=== PATIENT | male | born 1940 | race Caucasian/White ===

== ENCOUNTER → 2023-07-25 11:15 | Outpatient (REF) | payer MEDICARE, BC, SELFPAY ==
[2023-07-25 12:33] LABS: % Basophils 1.6 % (0-2); % Eosinophils 4.9 % (0-6); % Immature Granulocytes 0.2 % (0-0.5); % Monocytes 7.7 % (1.7-9.3); % Neutrophils 66.6 % (42.2-75.2); Absolute Basophils 0.1 10^3/uL (0-0.2); Absolute Eosinophils 0.3 10^3/uL (0-0.7); Absolute Lymphocytes 1.2 10^3/uL (1.2-3.4); Absolute Monocytes 0.5 10^3/uL (0.1-0.6); Absolute Neutrophils 4.2 10^3/uL (1.4-6.5); Hematocrit 33.8 % (39.0-52.0); Hemoglobin 11.5 g/dL (13.0-18.0); Mean Corpuscular Hgb 30.8 pg (27.0-31.0); Mean Corpuscular Volume 90.6 fL (80.0-94.0); Nucleated Red Blood Cells % 0 % (-); Platelet Count 231 10^3/uL (130-400); Red Blood Cell Count 3.73 10^6/uL (4.70-6.10); Red Cell Dist. Width 14.1 % (11.5-14.5); White Blood Cell Count 6.3 10^3/uL (4.8-10.8)
[2023-07-25 12:58] LABS: ALT (SGPT) 23 U/L (0-50); AST (SGOT) 34 U/L (17-59); Albumin 4.2 g/dl (3.5-5.0); Alkaline Phosphatase 61 U/L (38-126); Blood Urea Nitrogen 23 mg/dl (9-20); Calcium 9.6 mg/dl (8.4-10.2); Carbon Dioxide 27 mmol/L (22-30); Chloride 107 mmol/L (98-107); Glucose 91 mg/dl (70-99); Potassium 4.4 mmol/L (3.5-5.1); Sodium 137 mmol/L (135-145); Total Bilirubin 0.7 mg/dl (0.2-1.3); Total Protein 6.6 g/dl (6.3-8.2); eGFR > 60.00
[2023-07-25 13:14] LABS: Free T4 2.08 ng/dl (0.78-2.19)
[2023-07-25 13:28] LABS: TSH 0.89 uIU/ml (0.47-4.68)
== END ==
LOC: REG 11:15
PROVIDERS: ATTENDING PHYSICIAN Family Medicine
DX: E03.9 Hypothyroidism, unspecified (principal); Z79.1 Long term (current) use of non-steroidal anti-inflammatories (NSAID)
CPT/HCPCS: 36415; 80053; 84439; 84443; 85025

== ENCOUNTER → 2024-06-04 08:11 | Outpatient (REF) | payer MEDICARE, BC, SELFPAY ==
[2024-06-04 10:08] LABS: % Eosinophils 5.5 % (0-6); % Immature Granulocytes 0.3 % (0-0.5); % Monocytes 7.9 % (1.7-9.3); % Neutrophils 68.3 % (42.2-75.2); Absolute Basophils 0.1 10^3/uL (0-0.2); Absolute Eosinophils 0.3 10^3/uL (0-0.7); Absolute Monocytes 0.5 10^3/uL (0.1-0.6); Absolute Neutrophils 4.1 10^3/uL (1.4-6.5); Hematocrit 36.7 % (39.0-52.0); Hemoglobin 11.9 g/dL (13.0-18.0); Mean Corp Hgb Conc. 32.4 g/dL (33.0-37.0); Mean Corpuscular Hgb 30.2 pg (27.0-31.0); Mean Corpuscular Volume 93.1 fL (80.0-94.0); Mean Platelet Volume 11.6 fL (7.4-10.4); Nucleated Red Blood Cells % 0 % (-); Platelet Count 234 10^3/uL (130-400); Red Blood Cell Count 3.94 10^6/uL (4.70-6.10); Red Cell Dist. Width 13.9 % (11.5-14.5)
[2024-06-04 11:28] LABS: ALT (SGPT) 27 U/L (0-50); AST (SGOT) 30 U/L (17-59); Albumin 4.7 g/dl (3.5-5.0); Alkaline Phosphatase 51 U/L (38-126); Blood Urea Nitrogen 47 mg/dl (9-20); Calcium 9.6 mg/dl (8.4-10.2); Carbon Dioxide 27 mmol/L (22-30); Chloride 105 mmol/L (98-107); Glucose 91 mg/dl (70-99); HDL Cholesterol 52 mg/dl; LDL Cholesterol, Calculated 148 mg/dl; Potassium 4.5 mmol/L (3.5-5.1); Sodium 142 mmol/L (135-145); Total Bilirubin 0.8 mg/dl (0.2-1.3); Total Cholesterol 219 mg/dl (50-199); Total Protein 6.9 g/dl (6.3-8.2); Triglyceride 97 mg/dl (10-149); Very Low Density Lipoprotein 19 mg/dl (0-30); eGFR 54.85
[2024-06-04 11:29] LABS: Free T4 1.56 ng/dl (0.78-2.19); Vitamin D, 25-OH*** 70.7 ng/mL (30-80)
[2024-06-04 11:43] LABS: TSH 1.71 uIU/ml (0.47-4.68)
== END ==
LOC: REG 08:11
PROVIDERS: ATTENDING PHYSICIAN Family Medicine
DX: E03.9 Hypothyroidism, unspecified (principal); K22.70 Barrett's esophagus without dysplasia; K90.0 Celiac disease
CPT/HCPCS: 36415; 80053; 80061; 82306; 84439; 84443; 85025

== ENCOUNTER 2024-07-24 12:30 | Observation (INO) | payer MEDICARE, BC, SELFPAY ==
[2024-07-24 08:39] VITALS: BP 143/69
[2024-07-24 09:16] VITALS: BMI 25.6
--- NOTE | 2024-07-24 09:16 | ED.GENMED ---
History of Present Illness
General
Chief Complaint: Musculo-Skeletal Complaint
Source: patient and spouse
Exam Limitations: none
Time Seen by Provider: 07/24/24 09:02
Nursing documentation reviewed up to this point in time: agreed with
History of Present Illness
History of Present Illness:
83-year-old male with history as noted presents to the ER for evaluation of right knee pain and swelling. Patient reports that symptoms started a few days ago and they have been constant since that time. Knee is painful and swollen, pain worse
with movement. He has a history of pseudogout in the past last seen in this emergency room 4 years ago. He saw his primary doctor for this episode of pain and swelling and was prescribed prednisone yesterday and has taken 1 dose but decided to
come to the ER to have his knee drained. He denies any fevers or chills. He denies any trauma or injury. He denies any other joint pains or other complaints.
Past History
Past History
ED Past Medical History: GERD, HTN, Hypothyroidism and Other
ED Past Surgical History: Orthopedic
Social History
Tobacco: Non-smoker
Alcohol: Occasional
Drug: None
Personal:
Living: with family
Employment: Retired
Family History
Family History: Other (Noncontributory)
Review of Systems
Review of Systems
All Other Systems: ROS reviewed and negative except as documented in HPI and ROS
Constitutional: Denies fever or chills
Respiratory: Denies trouble breathing
Cardiac: Denies chest pain
Musculoskeletal: Reports joint pain and joint swelling
Phy Exam
Physical Exam
Physical Exam:
General: Well appearing and non-toxic
HEENT: protecting airway
Neck: appears supple
CV: No evidence of cyanosis
Resp: No accessory muscle use
Abd: Non-distended
Extremities: Patient has large suprapatellar right knee effusion; he has no tenderness of the patella or along the medial or lateral joint line, no tenderness in the popliteal region, no erythema of the joint but the joint is somewhat warm; no edema
in the right calf or calf tenderness, good strong distal pulses right lower extremity DP and PT; left lower extremity shows no knee effusion or other acute abnormalities
Neuro: Alert
Psych: Normal affect
Skin: Intact
Scores
Heart Failure Risk
Heart Failure Risk Score: Not Applicable
Heart Score for Chest Pain Patients
STEMI patient?: Not applicable
Withdrawal Assessment of Alcohol
Withdrawal Assessment Completed?: Not applicable
Course
Orders/Labs/Results
Orders:
Orders
07/24/24 09:20
CRP [C-Reactive Protein] Urgent
Complete Blood Count/With Diff Urgent
Comprehensive Metabolic Panel Urgent
ESR [Erythrocyte Sed Rate] Urgent
Uric Acid Urgent
07/24/24 09:44
Body Fluid Cell Count Urgent
What is the Body Fluid: joint
Date Specimen was Collected: 07/24/24
Time Specimen was Collected: 09:43
Comment: with DIFF
Body Fluid Crystals Urgent
What is the Body Fluid: joint
Date Specimen was Collected: 07/24/24
Time Specimen was Collected: 09:43
Body Fluid Glucose Urgent
Fluid Source: Other
Other Source: right knee
Date Specimen was Collected: 07/24/24
Time Specimen was Collected: 09:43
07/24/24 09:45
Fluid Culture with Gram Stain Urgent
ELLIE Source: Joint Fluid
Specimen Description:
Date Specimen was Collected: 07/24/24
Time Specimen was Collected: 09:43
07/24/24 11:37
CefTRIAXone [Rocephin] 2,000 mg IV NOW STA
Vancomycin [Vancocin] 2,000 mg 0.9% Sodium Chloride 500 ml [Nss] 500 ml IV NOW
07/24/24 11:38
ORTHOPEDIC CONSULT Urgent
Consulting Provider: Hunter Estrada
Was physician already notified: Yes
07/24/24 12:04
CR Knee- Right 4 Or More View* Urgent
Comment:
Reason For Exam: knee pain
Abnormal Lab Results
07/24/24
09:20
WBC 10.9 H 10^3/uL
(4.8-10.8)
RBC 3.57 L 10^6/uL
(4.70-6.10)
Hgb 11.0 L g/dL
(13.0-18.0)
Hct 32.6 L %
(39.0-52.0)
MPV 10.7 H fL
(7.4-10.4)
Absolute Neuts (auto) 9.1 H 10^3/uL
(1.4-6.5)
Absolute Lymphs (auto) 0.8 L 10^3/uL
(1.2-3.4)
Absolute Monos (auto) 1.0 H 10^3/uL
(0.1-0.6)
Neutrophils % 83.0 H %
(42.2-75.2)
Lymphocytes % 6.9 L %
(20.5-51.1)
Monocytes % 9.4 H %
(1.7-9.3)
ESR 32 H mm/hour
(0-20)
BUN 29 H mg/dl
(9-20)
Glucose 116 H mg/dl
(70-99)
C-Reactive Protein 45.70 H mg/L
(0.0-10.00)
Total Protein 6.2 L g/dl
(6.3-8.2)
07/24/24 09:20
07/24/24 09:20
Vital Signs
Initial and Last Documented VS:
Initial Vital Signs
Temp Pulse Resp BP Pulse Ox
36.9 C 63 16 143/69 98
07/24/24 08:39 07/24/24 08:39 07/24/24 08:39 07/24/24 08:39 07/24/24 08:39
Last Documented Vital Signs
Temp Pulse Resp BP Pulse Ox
36.9 C 63 16 143/69 98
07/24/24 08:39 07/24/24 08:39 07/24/24 08:39 07/24/24 08:39 07/24/24 08:39
Procedures
Incision/Drainage/Joint Aspiration
Right Knee:
Anethesia: 1% Lidocaine with Epi
Preparation: cleaned with Betadine
Type of procedure: aspiration
Nature of site: other (joint effusion)
How much fluid was obtained?: number in mls (50)
Fluid description: cloudy and yellowish
Treatment: bandaid applied
MDM/Problems Addressed
Differential Diagnosis Includes:
Septic arthritis, inflammatory arthritis (gout/pseudogout), osteoarthritis
MDM/Problems Addressed:
83-year-old male presents with right knee pain and swelling in the absence of trauma. He does have history of pseudogout. No fever, well-appearing patient. Physical exam as above. Check labs including a CBC with ESR/CRP, uric acid level. Proceed
with arthrocentesis to rule out septic arthritis. Hold off on x-ray in the absence of trauma and with the patient being ambulatory very low clinical suspicion for fracture or dislocation based on clinical exam. Reassess after the above.
Labs reviewed: CBC shows leukocytosis to 10.9 with 83% neutrophils. CMP shows no clinically significant abnormalities. Uric acid level normal. His CRP is elevated. ESR pending. Synovial fluid analysis shows significant elevation in WBCs to
43,500. 84% PMNs. Initial Gram stain negative but findings concerning for septic arthritis. Crystal analysis shows no crystals. Plan to admit on IV antibiotics pending culture. Case discussed with orthopedist for consultation. Case discussed
with hospitalist for admission.
Seen by orthopedist at bedside, recommending knee x-ray for completeness and will follow along with cultures.
Chronic conditions affecting care:
Pseudogout
*Pulse Oximetry
Patient hypoxic: no
*Critical Care Note
Total Time (30-74mins, 75-104mins- exclusive of procedures): Not Applicable
Data Reviewed
Review of Other/Old Records Reveals: Labs, Records and Testing
Source: patient, records and spouse
Patient Management
Discussion with other providers: Hospitalist (Discussed with hospitalist) and Quality Assurance Supervisor Ch[employer] (Discussed with orthopedist)
Escalation/DeEscalation of care consider admission/obs:
Admission indicated
ED Attending Note
-
Portions of this chart may have been created with voice recognition software.� Occasional wrong word or��sound alike� substitutions may have occurred due to the inherent limitations of voice recognition software.
Discharge Plan
Departure
Patient Disposition: Admit
Date of Disposition: 07/24/24
Time of Disposition: 11:38
Admit to doctor: Brent
Presentation/result/management discussed w/ accepting MD/DO: Hospitalist
Discharge Problem:
Septic arthritis
Prescriptions:
No Action
levothyroxine 50 MCG tablet
150 mcg PO DAILY
omeprazole 40 mg Capsule,Delayed Release(Dr/Ec)
40 mg PO DAILY
omega-3 fatty acids Capsule
2 cap PO DAILY
cholecalciferol (vitamin D3) 25 mcg (1,000 unit) Tablet
25 mcg PO DAILY
docusate sodium 100 mg Capsule
100 mg PO BID Qty: 30 0RF
sennosides [Senna Lax] 8.6 mg Tablet
17.2 mg PO BID Qty: 30 0RF
acetaminophen [Pain Relief ES (acetaminophen)] 500 mg Tablet
1,000 mg PO Q6H Qty: 60 0RF
Rx Instructions:
DO NOT exceed >4000 mg daily.
tramadol 50 mg tablet
50 - 100 mg PO Q6H PRN (Reason: moderate-severe pain) Qty: 30 0RF
Rx Instructions:
1 tab for moderate pain, 2 if severe.
Dx ACDF
ondansetron HCl 4 mg tablet
4 mg PO Q6H PRN (Reason: nausea and vomiting) Qty: 30 0RF
cephalexin 500 mg capsule
500 mg PO QID Qty: 20 0RF
Saccharomyces boulardii [Florastor] 250 mg capsule
250 mg PO BID Qty: 10 0RF
Rx Instructions:
Over the counter. Take while on antibiotic.
If unavailable, choose a different probiotic.
pregabalin [Lyrica] 75 mg capsule
75 mg PO BID Qty: 15 0RF
Rx Instructions:
Take twice a day for 5 days, then once daily for 5 days, then STOP.
amlodipine 5 mg Tablet
5 mg PO HS Qty: 0 0RF
Rx Instructions:
HOLD IF systolic blood pressure <130 while on Tramadol.
olmesartan 40 mg Tablet
40 mg PO HS Qty: 0 0RF
Rx Instructions:
HOLD IF systolic blood pressure <130 while on Tramadol.
Referrals:
Jayne Beltran DO [Family Provider] -
Interventions
Interventions:
*Risk Screen - Suicide Last Done: 07/24/24 08:39
*General Assessment Last Done: 07/24/24 11:31
*Neglect/Abuse Screening Last Done: 07/24/24 08:39
*ED- Fall Risk Assessment Last Done: 07/24/24 11:31
*ED COVID-19 Vaccine History Last Done: 07/24/24 11:31
ED-Musculoskeletal Assessment Last Done: 07/24/24 11:32
Discharge Date and Time
Print Language: WOLOF
[2024-07-24 09:32] LABS: % Basophils 0.2 % (0-2); % Eosinophils 0.1 % (0-6); % Immature Granulocytes 0.4 % (0-0.5); % Lymphocytes 6.9 % (20.5-51.1); % Monocytes 9.4 % (1.7-9.3); Absolute Lymphocytes 0.8 10^3/uL (1.2-3.4); Absolute Neutrophils 9.1 10^3/uL (1.4-6.5); Hematocrit 32.6 % (39.0-52.0); Mean Corp Hgb Conc. 33.7 g/dL (33.0-37.0); Mean Corpuscular Hgb 30.8 pg (27.0-31.0); Mean Corpuscular Volume 91.3 fL (80.0-94.0); Mean Platelet Volume 10.7 fL (7.4-10.4); Nucleated Red Blood Cells % 0 % (-); Platelet Count 210 10^3/uL (130-400); Red Blood Cell Count 3.57 10^6/uL (4.70-6.10); Red Cell Dist. Width 13.2 % (11.5-14.5); White Blood Cell Count 10.9 10^3/uL (4.8-10.8)
[2024-07-24 09:48] LABS: ALT (SGPT) 21 U/L (0-50); AST (SGOT) 26 U/L (17-59); Albumin 3.8 g/dl (3.5-5.0); Alkaline Phosphatase 51 U/L (38-126); Blood Urea Nitrogen 29 mg/dl (9-20); Calcium 9.5 mg/dl (8.4-10.2); Carbon Dioxide 27 mmol/L (22-30); Chloride 104 mmol/L (98-107); Estimated Creatinine Clearance 53 ml/min; Glucose 116 mg/dl (70-99); Potassium 4.2 mmol/L (3.5-5.1); Sodium 139 mmol/L (135-145); Total Bilirubin 0.9 mg/dl (0.2-1.3); Total Protein 6.2 g/dl (6.3-8.2); Uric Acid 6.8 mg/dl (3.5-8.5); eGFR > 60.00
[2024-07-24 10:36] LABS: Body Fluid WBC 43580 /CUMM
[2024-07-24 10:38] LABS: Body Fluid Second Tech HB
[2024-07-24 11:44] LABS: Erythrocyte Sed Rate 32 mm/hour (0-20)
--- NOTE | 2024-07-24 12:06 | CON.ORTHO ---
Consultation
-
Date/Time Consultation Requested: 07/24/2024
Date/Time Consultation Performed: 07/24/2024
Requesting Provider: Reji Arredondo
Performing Provider: Sarkis Estrada
Reason for Consultation: R knee pain
Consultation - Orthopedics
History
Orthopedic Surgery Note
CC: R knee pain
HPI: 83-year-old male with a history of pseudogout presents for evaluation of 4 to 5 days of right knee pain. He denies acute traumatic injury. He reports feeling pain similar to his prior gout flare and his medical team started him on oral
prednisone. After a day of prednisone, the pain did not improve and he presented to [place] emergency department. He underwent aspiration and reports that the knee feels much better. He has pain with terminal flexion and extension.
PMH/PSH: GERD, HTN, hypothryoid, psuedogout, lumbar decompression
Medications: reviewed
Family History: Family history was reviewed. Noncontributory
Social history: Nonsmoker, no illicit drugs
Exam
General appearance: Pleasant. No acute distress.
Head: Normocephalic/atraumatic
Nose: No lesions or discharge.
Skin: No obvious rashes or open wounds
Lungs: No audible wheezing, no cough or sputum production
Musculoskeletal:
RLE:
small effusion
no overlying erythema
ROM 5-90 limited by pain
skin intact without open wounds
fires ehl/fhl/ta/gs
sensation intact to light touch distally s/s/sp/dp/t
No micromotion pain with active motion
Synovial fluid R Knee 07/24/2024
WBC: 49315
PMN: 84%
Crystals: none visible
Cultures: Pending
AP:
83-year-old male with 4 to 5 days of atraumatic right knee pain and swelling. I evaluated the patient and discussed the findings. 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
arthropathy than acute bacterial infection. We discussed following the cultures and general indications for surgical I&D if he develops signs or symptoms consistent with acute bacterial infection. We discussed treatments for crystal arthropathy
which can be managed by the medical and/or rheumatology teams. All questions were answered.
Sarkis Estrada MD
> 75 minutes was spent reviewing the clinical information, evaluating the patient, and formulating clinical plan.
Allergies / Home Medications
Allergy/AdvReac Type Severity Reaction Status Date / Time
gluten Allergy Unknown Verified 05/14/23 06:23
Sulfa (Sulfonamide Allergy Hives Verified 05/14/23 06:23
Antibiotics)
�Medication �Instructions �Recorded
levothyroxine 50 mcg tablet 150 mcg PO DAILY 09/12/10
omeprazole 40 mg capsule,delayed 40 mg PO DAILY 04/28/23
release
cholecalciferol (vitamin D3) 25 25 mcg PO DAILY 04/29/23
mcg (1,000 unit) tablet
omega-3 fatty acids 2 cap PO DAILY 04/29/23
Saccharomyces boulardii 250 mg 250 mg PO BID #10 caps 05/15/23
capsule (Florastor)
acetaminophen 500 mg tablet (Pain 1,000 mg (2 x 500 mg) PO Q6H #60 05/15/23
Relief Extra Strength tabs
(acetaminophen))
amlodipine 5 mg tablet 5 mg PO HS #0 tabs 05/15/23
cephalexin 500 mg capsule 500 mg PO QID #20 caps 05/15/23
docusate sodium 100 mg capsule 100 mg PO BID #30 caps 05/15/23
olmesartan 40 mg tablet 40 mg PO HS #0 tabs 05/15/23
ondansetron HCl 4 mg tablet 4 mg PO Q6H PRN nausea and 05/15/23
vomiting #30 tabs
pregabalin 75 mg capsule (Lyrica) 75 mg PO BID #15 caps 05/15/23
sennosides 8.6 mg tablet (Senna 17.2 mg (2 x 8.6 mg) PO BID #30 05/15/23
Lax) tabs
tramadol 50 mg tablet 50 - 100 mg (1 - 2 x 50 mg) PO Q6H 05/15/23
PRN moderate-severe pain #30 tabs
Vital Signs / Lab Results
Temp Pulse Resp BP Pulse Ox
98.5 F 63 16 143/69 98
07/24/24 08:39 07/24/24 08:39 07/24/24 08:39 07/24/24 08:39 07/24/24 08:39
07/24/24 09:20
07/24/24 09:20
--- NOTE | 2024-07-24 12:08 | HPS.HSE ---
Family Physician
-
Family Physician: Jayne Beltran
Chief Complaint
-
Right knee pain
History of Present Illness
Patient is a pleasant 84 years old with history of hypertension, hypothyroidism, GERD who came to the ER with right knee pain and swelling which started few days ago, patient with history of pseudogout, patient was prescribed prednisone by his PCP
and he received 30 mg last night.
In the ER patient underwent arthrocentesis and consult to orthopedic obtained, patient was already seen by orthopedic who advised starting colchicine and steroid.
Patient seen and examined at bedside, denies any chest pain or shortness of breath, no abdominal pain, no nausea, no vomiting, no diarrhea or constipation.
Plan discussed with patient and his at bedside.
Patient will be admitted under hospitalist service.
Medical History
Past Medical History
Past Medical History: Reports GERD, HTN and Hypothyroidism
Past Surgical History: Reports Orthopedic
Social History
Tobacco: Non-smoker
Alcohol: Occasional
Drug: None
Personal:
Living: With Family
Family History
Family History: Not pertinent
Allergies / Home Medications
Allergies reflects when Allergies were last updated in [employer].
Home Medications with original date entered in [employer]
Allergy/Medication List:
Allergies
Allergy/AdvReac Type Severity Reaction Status Date / Time
gluten Allergy Unknown Verified 05/14/23 06:23
Sulfa (Sulfonamide Allergy Hives Verified 05/14/23 06:23
Antibiotics)
Home Medications
levothyroxine 50 mcg tablet 150 mcg PO DAILY 09/12/10
omeprazole 40 mg capsule,delayed release 40 mg PO DAILY 04/28/23
cholecalciferol (vitamin D3) 25 mcg (1,000 unit) tablet 25 mcg PO DAILY 04/29/23
omega-3 fatty acids 2 cap PO DAILY 04/29/23
Saccharomyces boulardii 250 mg capsule (Florastor) 250 mg PO BID #10 caps 05/15/23
acetaminophen 500 mg tablet (Pain Relief Extra Strength (acetaminophen)) 1,000 mg (2 x 500 mg) PO Q6H #60 tabs 05/15/23
amlodipine 5 mg tablet 5 mg PO HS #0 tabs 05/15/23
cephalexin 500 mg capsule 500 mg PO QID #20 caps 05/15/23
docusate sodium 100 mg capsule 100 mg PO BID #30 caps 05/15/23
olmesartan 40 mg tablet 40 mg PO HS #0 tabs 05/15/23
ondansetron HCl 4 mg tablet 4 mg PO Q6H PRN nausea and vomiting #30 tabs 05/15/23
pregabalin 75 mg capsule (Lyrica) 75 mg PO BID #15 caps 05/15/23
sennosides 8.6 mg tablet (Senna Lax) 17.2 mg (2 x 8.6 mg) PO BID #30 tabs 05/15/23
tramadol 50 mg tablet 50 - 100 mg (1 - 2 x 50 mg) PO Q6H PRN moderate-severe pain #30 tabs 05/15/23
Review of Systems
-
A 12 point ROS was completed and negative except as noted: Yes
Constitutional: Denies Fever, Weight Gain, Weight Loss, Fatigue or Sleep Disturbance
EENT: Denies Tearing, Sore Throat, Mouth Pain, Mouth Swelling or Runny Nose
Respiratory: Denies Cough, Hemoptysis or Trouble Breathing
Cardiac: Denies Chest Pain, Diaphoresis, Palpitations or Syncope
Abdomen/GI: Denies Abdominal Pain, Nausea, Vomiting, Diarrhea, Constipated, Bloody Stools or Black Stools
: Denies Dysuria, Frequency, Flank Pain, Incontinence, Difficulty Voiding, Urgency, Bleeding or Dark Urine
Musculoskeletal: Reports Joint Pain and Joint Swelling; Denies Muscle Pain, Muscle Stiffness or Edema
Skin: Denies Itching or Rash
Neurological: Denies Dizzy, Headache, Weakness or Numbness
Endocrine: Denies Polyuria, Polydipsia or Temp Intolerance
Hematologic/Lymphatic: Denies Bleeding, Swollen Glands or Bruising
Psych: Reports Calm; Denies Depression, Anxiety or Panic Disorder
Physical Exam
Vital Signs
Vital Signs
Temp Pulse Resp BP Pulse Ox
98.5 F 63 16 143/69 98
07/24/24 08:39 07/24/24 08:39 07/24/24 08:39 07/24/24 08:39 07/24/24 08:39
Physical Exam
General: Well Developed, Well Nourished, No Apparent Distress, Comfortable and Good Appetite; No Pain, Chills or Sweats
HEENT: NormoCephalic, Moist mucous membranes, Atraumatic, Good Dentition, PERRLA, Nose Appears Normal and Ears Appear Normal
Respiratory: Clear
Cardiac: S1/S2 and Regular Rhythm
Breast: Deferred by me
GI: Soft, Non Tender, Non Distended and Normal Bowel Sounds
Genito-urinary: Deferred by me
Musculoskeletal: Other (Right knee pain and swelling.)
Skin: Warm; No Rash, Jaundice, Ulcers, Lesions or Decubitus Ulcers
Neuro: Awake, Alert, Oriented, AO x 3, No Motor Deficits, Nonfocal/grossly intact and Cranial Nerves Intact
Hematologic/Lymphatic: No Lymphadenopathy
Psych: Calm
Laboratory Results
-
07/24/24 09:20
07/24/24 09:20
Laboratory Results
Total Bilirubin 0.9 mg/dl (0.2-1.3) 07/24/24 09:20
AST 26 U/L (17-59) 07/24/24 09:20
ALT 21 U/L (0-50) 07/24/24 09:20
Alkaline Phosphatase 51 U/L (38-126) 07/24/24 09:20
Data Reviewed
-
Diagnostic Radiology: Report Reviewed by me
CT Scan: Report Reviewed by me
Medical Tests (Nuc Med, Echo, EKG etc): Report Reviewed by me
Lab Data: Labs Reviewed by me
Old Records: Reviewed
Impression/Plan
-
IMPRESSION:
Patient is 83 years old with history of hypertension, GERD, hypothyroidism came with right knee pain and swelling, concern of septic arthritis but seen by orthopedic and they are, possible pseudogout.
Will be admitted and started on steroid and colchicine.
Assessment/Plan:
Right knee pain, rule out septic arthritis.
Patient seen orthopedic in the ER and stated this is possible pseudogout.
Will start steroid with Decadron and start colchicine.
Patient was given vancomycin and Rocephin in the ER which will be continued for now.
Pain control.
PT/OT consult.
History of hypertension
Continue home meds
History of hypothyroidism.
Continue levothyroxine
CODE STATUS: Full code
DVT prophylaxis: Lovenox
Diet: Regular diet
Total time spent on today's encounter was 55 minutes which included time spent in counseling the patient/family regarding diagnosis and treatment plan as listed above, goals of care, and symptom management. Case was discussed with nursing staff,
specialists, and care coordinators/case management. All labs and imaging personally reviewed by me. Remainder the time spent in detailed review of previous records, lab data, imaging, and other medical provider documentation.
[2024-07-24] MEDS: ROCEPHIN 2000 MG IV (12:16)
[2024-07-24 12:23] LABS: Body Fluid Glucose 74 mg/dl
[2024-07-24] MEDS: VANCOCIN 540 MG IV (12:30)
[2024-07-24 13:08] VITALS: BP 143/74
--- NOTE | 2024-07-24 13:13 | PHA.VAN.IN ---
Assessment
- Assessment
Renal Function: Appears similar to baseline
Concomitant Antimicrobials: ceftriaxone
AUC Dosing Plan
- Dosing Variables
Dosing Weight (kg): 81
Dosing CrCl (ml/min): 53
Vd coefficient (L/kg): 0.7
- Empiric Dosing
Initial / Loading Dose: 2000 mg load dose - adm pending as of this writing
Maintenance Regimen: 1250 mg q24h to start 0600 07/25/24
Estimated AUC (mcg*h/mL): 472
Estimated Peak (mcg*h/mL): 32.1
Estimated Trough (mcg/ml): 10.8
Estimated Half Life (H): 14.3
- Monitoring
No levels ordered at this time: will consider levels when pt reaches steady state
Pharmacokinetics Vancomycin I
- -
Patient Age: 83
Patient Sex: Male
Vancomycin Day #: 1
Indication: [facility]
Requesting Provider: Chandrika
Pertinent Antimicrobial Allergies:
sulfonamide antibiotics - hives
Height / Weight:
Height 5 ft 10 in
Actual Weight 81 kg
- Vital Signs / Lab Results
Temp Pulse Resp BP Pulse Ox
98.5 F 65 16 143/74 98
07/24/24 08:39 07/24/24 13:08 07/24/24 08:39 07/24/24 13:08 07/24/24 13:08
Lab Results - Hematology
07/24/24
09:20
WBC 10.9 H
Lab Results - Chemistry
07/24/24
09:20
BUN 29 H
Creatinine 1.1
Estimated Creat Clear 53
Albumin 3.8
Microbiology Results
07/24/24 09:45 Gram Stain - Preliminary
Joint Fluid
--- NOTE | 2024-07-24 14:56 | CM ---
Initial assessment completed at bedside in the ED
[employer] form explained; form signed @ 1444
Patient and live in a multilevel farm house; 2 steps to enter; powder room 1st floor; railings on steps to 2nd floor bed and bath w/ stall shower, bench, and grab bar
PLOF: patient reported he is independent with ambulation, stairs, and ADLs; works second time worker on the farm/nursery; drives
NO SNF or Home Health utilization history
will transport home
Plan: anticipate discharge to home when medically stable; CM will monitor for discharge needs
--- NOTE | 2024-07-24 15:27 | PTCARENOTE ---
Report sent to [facility].
[2024-07-24] MEDS: COLCHICINE 1.2 MG PO (16:14)
[2024-07-24] MEDS: DECADRON 6 MG IV (16:15)
[2024-07-24] MEDS: STERILE WATER FOR INJECTION 20 ML IV (16:19)
--- NOTE | 2024-07-24 16:20 | PTCARENOTE ---
Rec'd pt as a hold. Admission done. Pt given IV decadron. No c/o pain at this time. Pt awaiting transfer to .
[2024-07-24] MEDS: LOVENOX 40 MG SC (17:33)
[2024-07-24 18:15] VITALS: BP 161/73
[2024-07-24 18:16] VITALS: BMI 25.6
[2024-07-24] MEDS: LYRICA 75 MG PO (21:02)
[2024-07-24] MEDS: FLORASTOR 250 MG PO (21:02)
[2024-07-24] MEDS: SENOKOT 17.2 MG PO (21:02)
[2024-07-24] MEDS: COLACE 100 MG PO (21:02)
[2024-07-24] MEDS: NORVASC 5 MG PO (21:02)
[2024-07-24 23:33] VITALS: BP 134/65
[2024-07-25] MEDS: DECADRON 6 MG IV (04:18)
[2024-07-25] MEDS: SYNTHROID 150 MCG PO (05:30)
[2024-07-25] MEDS: VANCOCIN 275 MG IV (05:30)
[2024-07-25 06:08] LABS: Hematocrit 30.9 % (39.0-52.0); Hemoglobin 10.3 g/dL (13.0-18.0); Mean Corp Hgb Conc. 33.3 g/dL (33.0-37.0); Mean Corpuscular Hgb 30.7 pg (27.0-31.0); Mean Platelet Volume 11.7 fL (7.4-10.4); Platelet Count 186 10^3/uL (130-400); Red Blood Cell Count 3.36 10^6/uL (4.70-6.10); Red Cell Dist. Width 13.5 % (11.5-14.5); White Blood Cell Count 8.2 10^3/uL (4.8-10.8)
[2024-07-25 06:39] LABS: Blood Urea Nitrogen 27 mg/dl (9-20); Calcium 9.3 mg/dl (8.4-10.2); Carbon Dioxide 25 mmol/L (22-30); Chloride 107 mmol/L (98-107); Estimated Creatinine Clearance 65 ml/min; Glucose 129 mg/dl (70-99); Potassium 4.2 mmol/L (3.5-5.1); Sodium 140 mmol/L (135-145); eGFR > 60.00
[2024-07-25 07:05] VITALS: BP 159/80
[2024-07-25 07:50] VITALS: BP 159/80
[2024-07-25] MEDS: COLACE 100 MG PO (08:28)
[2024-07-25] MEDS: LYRICA 75 MG PO (08:28)
[2024-07-25] MEDS: FLORASTOR 250 MG PO (08:28)
[2024-07-25] MEDS: PROTONIX 40 MG PO (08:28)
[2024-07-25] MEDS: SENOKOT 17.2 MG PO (08:28)
[2024-07-25] MEDS: VITAMIN D3 (cholecalciferol) 25 MCG PO (08:28)
[2024-07-25] MEDS: COLCHICINE 0.6 MG PO (08:28)
[2024-07-25 09:10] VITALS: BP 168/82; PULSE 65; O2SAT 98
--- NOTE | 2024-07-25 10:31 | W.PN.HOSP.TC ---
Today's Communication/Plan
-
Discharge home today
Assessment / Plan
Assessment / Plan
IMPRESSION:
Patient is 83 years old with history of hypertension, GERD, hypothyroidism came with right knee pain and swelling, concern of septic arthritis but seen by orthopedic and they are, possible pseudogout.
Will be admitted and started on steroid and colchicine.
Right knee pain and swelling improved, be discharged home on oral colchicine, prednisone, Augmentin.
Assessment/Plan:
Right knee pain, rule out septic arthritis.
Patient seen orthopedic in the ER and stated this is possible pseudogout.
Will start steroid with Decadron and start colchicine.
Patient was given vancomycin and Rocephin in the ER which will be continued for now.
Pain control.
PT/OT consult.
/
Improved, will be discharged home
History of hypertension
Continue home meds
History of hypothyroidism.
Continue levothyroxine
CODE STATUS: Full code
DVT prophylaxis: Lovenox
Diet: Regular diet
Total time spent on today's encounter was 55 minutes which included time spent in counseling the patient/family regarding diagnosis and treatment plan as listed above, goals of care, and symptom management. Case was discussed with nursing staff,
specialists, and care coordinators/case management. All labs and imaging personally reviewed by me. Remainder the time spent in detailed review of previous records, lab data, imaging, and other medical provider documentation.
Assessment/plan
CODE STATUS: Full code
DVT prophylaxis: Lovenox
Diet: Regular diet
Total time spent on today's encounter was 65 minutes which included time spent in counseling the patient/family regarding diagnosis and treatment plan as listed above, goals of care, and symptom management. Case was discussed with nursing staff,
specialists, and care coordinators/case management. All labs and imaging personally reviewed by me. Remainder the time spent in detailed review of previous records, lab data, imaging, and other medical provider documentation.
Anticipated Discharge: Today
Subjective/Interval History
-
Date of Service: July 25, 2024
Patient seen and examined at bedside, denies any chest pain or shortness of breath, no abdominal pain, no nausea, no vomiting, no diarrhea or constipation.
Objective Data
-
Labs:
Laboratory Results
07/25/24
04:12
WBC 8.2
Hgb 10.3 L
Hct 30.9 L
Plt Count 186
Sodium 140
Potassium 4.2
Chloride 107
Carbon Dioxide 25
BUN 27 H
Creatinine 0.9
Glucose 129 H
Calcium 9.3
Vital Signs:
Vital Signs
Temp Pulse Resp BP Pulse Ox
97.8 F 60 16 159/80 98
07/25/24 07:50 07/25/24 07:50 07/25/24 07:50 07/25/24 07:50 07/25/24 07:50
Physical Exam
-
General: Well Developed, Well Nourished, No Apparent Distress and Comfortable
HEENT: Normocephalic, Atraumatic, Moist Mucous Membranes, No Ptosis, PERRLA and Nose Appears Normal
Respiratory: Clear to Auscultation and Non Labored Respirations
Cardiac: Regular Rhythm and S1/S2
Breast: Deferred by me
GI: Soft, Nontender, Nondistended and Normal Bowel Sounds
Genito-urinary: No Costovertebral Tender
Musculoskeletal: No Clubbing, No Cyanosis, No Edema and Other (Improved right knee swelling and redness.)
Skin: Warm
Neuro: Awake, Alert, Oriented, AO x 3 and No Motor Deficits
Psych: Calm
Data Reviewed
-
Diagnostic Radiology: Image personally visualized and interpreted and Report Reviewed by me
CT Scan: Image personally visualized and interpreted and Report Reviewed by me
Ultrasound: Image personally visualized and interpreted and Report Reviewed by me
MRI: Image personally visualized and interpreted and Report Reviewed by me
Medical Tests (Nuc Med, Echo etc): Image personally visualized and interpreted and Report Reviewed by me
Labs: Labs Reviewed by me
Old Records: Reviewed
--- NOTE | 2024-07-25 10:38 | W.DCSUMMARY ---
Discharge Summary
Discharge Data
Date of Admission: 07/24/24
Date of Discharge: 07/25/24
-
Pending Results: No
Hospital Course
Hospital course
Patient is 83 years old with history of hypertension, GERD, hypothyroidism came with right knee pain and swelling, concern of septic arthritis but seen by orthopedic and they are, possible pseudogout.
Will be admitted and started on steroid and colchicine.
Right knee pain and swelling improved, be discharged home on oral colchicine, prednisone, Augmentin.
[facility]
Right knee pain, rule out septic arthritis.
Patient seen orthopedic in the ER and stated this is possible pseudogout.
Will start steroid with Decadron and start colchicine.
Patient was given vancomycin and Rocephin in the ER which will be continued for now.
Pain control.
PT/OT consult.
07/25
Improved, will be discharged home
History of hypertension
Continue home meds
History of hypothyroidism.
Continue levothyroxine
CODE STATUS: Full code
DVT prophylaxis: Lovenox
Diet: Regular diet
Total time spent on today's encounter was 40 minutes which included time spent in counseling the patient/family regarding diagnosis and treatment plan as listed above, goals of care, and symptom management. Case was discussed with nursing staff,
specialists, and care coordinators/case management. All labs and imaging personally reviewed by me. Remainder the time spent in detailed review of previous records, lab data, imaging, and other medical provider documentation.
Anticipated Discharge: Today
Discharge Plan
-
Patient Disposition: Home (Routine Discharge)
Discharge Diagnosis/Procedures: Right knee pain
Diet: Regular
Activity: As tolerated
Referrals:
Hunter Estrada MD [Active] - in one to two weeks
Jayne Beltran DO [Family Provider] -
Prescriptions:
New
colchicine 0.6 mg Tablet
0.6 mg PO DAILY 14 Days Qty: 14 0RF
amoxicillin-pot clavulanate 875-125 mg tablet
1 tab PO BID Qty: 10 0RF
Continued
omeprazole 40 mg Capsule,Delayed Release(Dr/Ec)
40 mg PO DAILY
cholecalciferol (vitamin D3) 25 mcg (1,000 unit) Tablet
25 mcg PO DAILY
prednisone 10 mg Tablet
30 mg PO DAILY
naproxen sodium [Aleve] 220 mg Tablet
220 mg PO DAILY
levothyroxine 150 mcg Tablet
150 mcg PO DAILY
olmesartan-hydrochlorothiazide 40-25 mg Tablet
1 tab PO Q48H
Patient Comments:
patient alternates with olmesartan 40 at bedtime
omega 9-zaa-qpy-fish oil [Fish Oil] 1,200 (144-216) mg Capsule
2 cap PO DAILY
olmesartan 40 mg tablet
40 mg PO Q48H
Patient Comments:
alternates with olmesartan/hctz
TheraTears 0.25 % Drops
1 drp BOTH EYES BID
Discharge Orders:
Discharge Patient (As Directed); Ordered 07/25/24
Ordered By: Carlitos Cobos
Discharge Date and Time
Print Language: TURKMEN
--- NOTE | 2024-07-25 12:27 | CM ---
Met with patient to review IMM. He is agreeable and signed. It is now on chart. Patient expressed no concerns.
Plan: Case management will continue to follow and assist with discharge planning. Home.
[2024-07-25 12:50] VITALS: BP 153/71
== END 2024-07-25 14:12 | disposition home or self-care (01) ==
LOC: 4 EAST ACU 12:30
PROVIDERS: ADMITTING PHYSICIAN General Practice; CONSULT PHYSICIAN Orthopaedic Surgery; EMERGENCY PHYSICIAN Emergency Medicine; FAMILY PHYSICIAN Family Medicine
DX: M25.461 Effusion, right knee (principal); M25.561 Pain in right knee; E03.9 Hypothyroidism, unspecified; I10 Essential (primary) hypertension
CPT/HCPCS: 20610; 73564; 80048; 80053; 82945; 84550; 85025; 85027; 85652; 86140; 87015; 87070; 87205; 89051; 89060; 96374; 96375; 97162; 99285; G0378

== ENCOUNTER → 2024-07-30 07:35 | Outpatient (REF) | payer MEDICARE, BC, SELFPAY | LOC: RAD 07:35 | PROVIDERS: ATTENDING PHYSICIAN Family Medicine | DX: M79.604 Pain in right leg (principal); M79.605 Pain in left leg; I10 Essential (primary) hypertension; I44.0 Atrioventricular block, first degree | CPT/HCPCS: 93005; 93925; 93970 ==

== ENCOUNTER → 2024-08-09 14:06 | Outpatient (REF) | payer MEDICARE, BC, SELFPAY ==
[2024-08-09 15:07] LABS: Erythrocyte Sed Rate 37 mm/hour (0-20)
[2024-08-09 15:21] LABS: ALT (SGPT) 21 U/L (0-50); AST (SGOT) 25 U/L (17-59); Alkaline Phosphatase 47 U/L (38-126); Blood Urea Nitrogen 40 mg/dl (9-20); Calcium 9.7 mg/dl (8.4-10.2); Carbon Dioxide 27 mmol/L (22-30); Chloride 107 mmol/L (98-107); Glucose 106 mg/dl (70-99); Magnesium 1.9 mg/dl (1.6-2.3); Phosphorus 3.6 mg/dl (2.5-4.5); Potassium 4.2 mmol/L (3.5-5.1); Sodium 143 mmol/L (135-145); Total Bilirubin 0.5 mg/dl (0.2-1.3); Total Protein 6.4 g/dl (6.3-8.2); eGFR > 60.00
[2024-08-09 15:26] LABS: Procalcitonin < 0.05 ng/ml (0.0-0.25)
[2024-08-09 15:41] LABS: % Eosinophils 3.4 % (0-6); % Immature Granulocytes 0.3 % (0-0.5); % Lymphocytes 11.5 % (20.5-51.1); % Monocytes 7.3 % (1.7-9.3); % Neutrophils 76.5 % (42.2-75.2); Absolute Basophils 0.1 10^3/uL (0-0.2); Absolute Eosinophils 0.3 10^3/uL (0-0.7); Absolute Monocytes 0.6 10^3/uL (0.1-0.6); Absolute Neutrophils 6.7 10^3/uL (1.4-6.5); Hematocrit 33.4 % (39.0-52.0); Hemoglobin 11.2 g/dL (13.0-18.0); Mean Corp Hgb Conc. 33.5 g/dL (33.0-37.0); Mean Corpuscular Hgb 30.7 pg (27.0-31.0); Mean Corpuscular Volume 91.5 fL (80.0-94.0); Mean Platelet Volume 10.5 fL (7.4-10.4); Nucleated Red Blood Cells % 0 % (-); Platelet Count 225 10^3/uL (130-400); Red Blood Cell Count 3.65 10^6/uL (4.70-6.10); Red Cell Dist. Width 13.6 % (11.5-14.5); White Blood Cell Count 8.8 10^3/uL (4.8-10.8)
[2024-08-09 15:52] LABS: PSA, Total - Screen 6.46 ng/ml (0.0-4.0); TSH 3.08 uIU/ml (0.47-4.68)
[2024-08-09 15:56] LABS: Ferritin 54.8 ng/ml (17.9-464.0)
[2024-08-09 17:16] LABS: Rheumatoid Agglutinin Less Than 10 IU (<10 IU)
[2024-08-11 15:03] LABS: CCP Antibody IgG/IgA 3 Units (0-19)
== END ==
LOC: REG 14:06
PROVIDERS: ATTENDING PHYSICIAN Family Medicine
DX: M79.675 Pain in left toe(s) (principal); M1A.4720 Other secondary chronic gout, left ankle and foot, without tophus (tophi); Z12.5 Encounter for screening for malignant neoplasm of prostate; M00.9 Pyogenic arthritis, unspecified; D64.9 Anemia, unspecified; I10 Essential (primary) hypertension; E03.9 Hypothyroidism, unspecified
CPT/HCPCS: 36415; 80053; 82728; 83735; 84100; 84145; 84443; 84550; 85025; 85652; 86140; 86200; 86430; G0103

== ENCOUNTER → 2024-08-10 08:50 | Outpatient (REF) | payer MEDICARE, BC, SELFPAY | LOC: RCS 08:50 | PROVIDERS: ATTENDING PHYSICIAN Family Medicine | DX: I10 Essential (primary) hypertension (principal); I44.0 Atrioventricular block, first degree | CPT/HCPCS: 93306 ==

== ENCOUNTER → 2024-11-17 06:52 | Outpatient (REF) | payer MEDICARE, BC, SELFPAY | LOC: MRI 06:52 | PROVIDERS: ATTENDING PHYSICIAN Orthopaedic Surgery Orthopaedic Surgery of the Spine; FAMILY PHYSICIAN Family Medicine | DX: M48.02 Spinal stenosis, cervical region (principal) | CPT/HCPCS: 72141 ==

== ENCOUNTER → 2024-11-22 06:32 | Outpatient (REF) | payer MEDICARE, BC, SELFPAY ==
[2024-11-22 08:11] LABS: Urine Character Clear (Clear)
[2024-11-22 08:14] LABS: Hematocrit 34.3 % (39.0-52.0); Hemoglobin 11.3 g/dL (13.0-18.0); Mean Corp Hgb Conc. 32.9 g/dL (33.0-37.0); Mean Corpuscular Volume 92.7 fL (80.0-94.0); Nucleated Red Blood Cells % 0 % (-); Platelet Count 230 10^3/uL (130-400); Red Cell Dist. Width 13.7 % (11.5-14.5)
[2024-11-22 08:21] LABS: INR 0.93; PT 12.7 Sec (11.4-14.6)
[2024-11-22 08:22] LABS: APTT 25.1 Sec (23.4-35.0)
[2024-11-22 08:40] LABS: Urine Squamous Cell 0-2 /LPF (Few)
[2024-11-22 08:45] LABS: ALT (SGPT) 19 U/L (0-50); AST (SGOT) 25 U/L (17-59); Albumin 4.4 g/dl (3.5-5.0); Alkaline Phosphatase 40 U/L (38-126); Blood Urea Nitrogen 33 mg/dl (9-20); Calcium 9.7 mg/dl (8.4-10.2); Carbon Dioxide 26 mmol/L (22-30); Chloride 107 mmol/L (98-107); Glucose 102 mg/dl (70-99); Potassium 4.6 mmol/L (3.5-5.1); Sodium 140 mmol/L (135-145); Total Protein 6.9 g/dl (6.3-8.2); eGFR > 60.00
== END ==
LOC: REG 06:32
PROVIDERS: ATTENDING PHYSICIAN Nurse Practitioner Family; FAMILY PHYSICIAN Family Medicine
DX: R31.9 Hematuria, unspecified (principal); R97.20 Elevated prostate specific antigen [PSA]; R59.0 Localized enlarged lymph nodes; M54.50 Low back pain, unspecified
CPT/HCPCS: 36415; 80053; 81003; 81015; 84153; 84154; 85025; 85610; 85730

== ENCOUNTER → 2024-12-03 07:07 | Outpatient (REF) | payer MEDICARE, BC, SELFPAY | LOC: RAD 07:07 | PROVIDERS: ATTENDING PHYSICIAN Nurse Practitioner Family | DX: R31.9 Hematuria, unspecified (principal); R97.20 Elevated prostate specific antigen [PSA] | CPT/HCPCS: 76770 ==

== ENCOUNTER 2024-12-17 06:06 | Day surgery (SDC) | payer MEDICARE, BC, SELFPAY ==
[2024-12-17] VITALS (10 sets, daily range): BP systolic 139–173; BP diastolic 75–91; BMI 25.1
== END 2024-12-17 10:14 | disposition home or self-care (01) ==
LOC: SDS 06:06
PROVIDERS: ATTENDING PHYSICIAN Specialist
DX: N20.1 Calculus of ureter (principal)
CPT/HCPCS: 52352; 74018; 76000; C1758; C1894; C2617

== ENCOUNTER 2024-12-19 12:52 | Emergency (ER) | payer MEDICARE, BC, SELFPAY ==
[2024-12-19 12:59] VITALS: BP 135/73
[2024-12-19 13:40] VITALS: BMI 25.5
--- NOTE | 2024-12-19 13:40 | ED.GENMED ---
History of Present Illness
General
Chief Complaint: Flank Pain
Source: patient
Exam Limitations: none
Time Seen by Provider: 12/19/24 13:31
History of Present Illness
History of Present Illness:
84-year-old male presents complaining of pain in the left flank upon urinating. He had left ureteroscopy and stent placement by urology 2 days ago. Since then he is experiencing significant flank pain only upon urinating. At rest and when not
urinating he has no discomfort. He denies a fever. He has been on Pyridium. We did receive a call from urology had time that he would be coming in.
Past History
Past History
ED Past Medical History: GERD, HTN, Hypothyroidism and Other
ED Past Surgical History: Orthopedic
Social History
Tobacco: Non-smoker
Alcohol: Occasional
Drug: None
Personal:
Living: with family
Employment: Retired
Family History
Family History: Other (Noncontributory)
Phy Exam
Physical Exam
Physical Exam:
General: Well-appearing male no acute respiratory distress
HEENT normocephalic atraumatic
Heart: Regular rate and rhythm
Lungs: Clear no wheeze
Abdomen is soft mild suprapubic tenderness no guarding rebound no significant costovertebral angle tenderness
Skin is warm no rash
Course
Orders/Labs/Results
Orders:
Orders
12/19/24 13:39
Marie Placement- Treatment ONCE
Reason for insertion: Outlet obstruction
12/19/24 13:44
Urinalysis Reflex To Culture Urgent
Date Specimen was Collected: 12/19/24
Time Specimen was Collected: 13:43
Comment: Marie Catheter
Urine Microscopic Reflex Cult Urgent
Urine Culture Urgent
ELLIE Source: U
Specimen Description:
Date Specimen was Collected: 12/19/24
Time Specimen was Collected: 13:43
12/19/24 14:32
Cefdinir [Omnicef] 300 mg PO NOW STA
Abnormal Lab Results
12/19/24
13:44
Ur Occult Blood Reflex 4+ A
(Negative)
Urine Nitrite (Reflex) Positive A
(Negative)
Urine Bilirubin 3+ A
(Negative)
Urine Urobilinogen 3+ A
(Neg - 1+)
Leukocyte Esterase Rfl 2+ A
(Negative)
Urine RBC 60-70 A /HPF
(0-2)
Urine WBC (Reflex) 11-15 A /HPF
(0-5)
Urine Bacteria (Reflex) Few A
(Negative)
Urine Albumin (Reflex) 3+ A
(Neg - Trace)
Vital Signs
Initial and Last Documented VS:
Initial Vital Signs
Temp Pulse Resp BP Pulse Ox
98.5 F 58 18 135/73 96
12/19/24 12:59 12/19/24 12:59 12/19/24 12:59 12/19/24 12:59 12/19/24 12:59
Last Documented Vital Signs
Temp Pulse Resp BP Pulse Ox
98.5 F 58 18 135/73 96
12/19/24 12:59 12/19/24 12:59 12/19/24 12:59 12/19/24 12:59 12/19/24 13:42
MDM/Problems Addressed
Differential Diagnosis Includes:
Patient with left flank pain upon urinating. Recent ureteroscopy with left ureteral stenting. Urology sent patient in for catheter as a suspect the pressure in the bladder is building up refluxing into the kidney secondary to enlarged prostate.
Urinalysis will be ordered will place catheter
*Pulse Oximetry
SaO2: 96
Oxygen Mode of Delivery: Room air
Patient hypoxic: no
*Critical Care Note
Total Time (30-74mins, 75-104mins- exclusive of procedures): Not Applicable
Update Note
Update Note:
Patient had Marie catheter placed. Urinalysis looks suspicious of urinary tract infection. Please note patient is on high radium. Discussed these findings with urology, Dr. Enrique who recommended 5 days worth of antibiotic. Cefdinir started.
Stable for discharge
ED Attending Note
-
Portions of this chart may have been created with voice recognition software.� Occasional wrong word or��sound alike� substitutions may have occurred due to the inherent limitations of voice recognition software.
Discharge Plan
Departure
Patient Disposition: Home (Routine Discharge)
Date of Disposition: 12/19/24
Time of Disposition: 14:33
Patient with high blood pressure during this ER visit?: No
Discharge Problem:
Dysuria
Instructions: Flank Pain (DC)
Prescriptions:
New
cefdinir 300 mg capsule
300 mg PO BID 5 Days Qty: 10 0RF
No Action
omeprazole 40 mg Capsule,Delayed Release(Dr/Ec)
40 mg PO DAILY
naproxen sodium [Aleve] 220 mg Tablet
220 mg PO BID
levothyroxine 150 mcg Tablet
150 mcg PO DAILY
olmesartan-hydrochlorothiazide 40-25 mg Tablet
1 tab PO Q48H
Patient Comments:
patient alternates with olmesartan 40 at bedtime
olmesartan 40 mg tablet
40 mg PO Q48H
Patient Comments:
alternates with olmesartan/hctz in the PM
tamsulosin 0.4 mg Capsule
0.4 mg PO QPM
cholecalciferol (vitamin D3) [Vitamin D3] 50 mcg (2,000 unit) Tablet
100 mcg PO DAILY
Fish Oil 1,400 MG capsule
2,800 mg PO DAILY
Activity Restrictions/Additional Instructions:
Take antibiotic as directed. Follow-up with urology. Empty Marie bag as needed
Interventions
Interventions:
*Risk Screen - Suicide Last Done: 12/19/24 13:00
*General Assessment Last Done: 12/19/24 12:55
*Neglect/Abuse Screening Last Done: 12/19/24 13:57
*ED- Fall Risk Assessment Last Done: 12/19/24 13:40
*ED COVID-19 Vaccine History Last Done: 12/19/24 13:40
UY-Xzzanh-Drqjumatei Assessment Last Done: 12/19/24 13:41
ED-Male Genitourinary Assessment Last Done: 12/19/24 13:41
Discharge Date and Time
Print Language: [place]
[2024-12-19 14:04] LABS: Urine Character Clear (Clear)
[2024-12-19 14:16] LABS: Urine Red Blood Cell 60-70 /HPF (0-2); Urine Squamous Cell 0-2 /LPF (Few)
[2024-12-19] MEDS: OMNICEF 300 MG PO (14:59)
== END 2024-12-19 15:20 | disposition home or self-care (01) ==
LOC: EMR 12:52
PROVIDERS: Physician Assistant; EMERGENCY PHYSICIAN Emergency Medicine; FAMILY PHYSICIAN Family Medicine
DX: N40.1 Benign prostatic hyperplasia with lower urinary tract symptoms (principal); N13.8 Other obstructive and reflux uropathy; I10 Essential (primary) hypertension; E03.9 Hypothyroidism, unspecified; K21.9 Gastro-esophageal reflux disease without esophagitis
CPT/HCPCS: 99283; 51702; 81003; 81015; 87086

== ENCOUNTER → 2025-01-17 06:50 | Outpatient (REF) | payer MEDICARE, BC, SELFPAY ==
[2025-01-17 08:23] LABS: ALT (SGPT) 19 U/L (0-50); AST (SGOT) 26 U/L (17-59); Albumin 4.5 g/dl (3.5-5.0); Alkaline Phosphatase 48 U/L (38-126); Blood Urea Nitrogen 34 mg/dl (9-20); Calcium 9.7 mg/dl (8.4-10.2); Carbon Dioxide 28 mmol/L (22-30); Chloride 105 mmol/L (98-107); Glucose 101 mg/dl (70-99); HDL Cholesterol 61 mg/dl; LDL Cholesterol, Calculated 153 mg/dl; Potassium 4.7 mmol/L (3.5-5.1); Sodium 139 mmol/L (135-145); Total Protein 7.0 g/dl (6.3-8.2); Very Low Density Lipoprotein 19 mg/dl (0-30); eGFR > 60.00
[2025-01-17 08:25] LABS: FSH 6.1 mIU/ml (1.55-9.74)
[2025-01-17 08:41] LABS: TSH 2.37 uIU/ml (0.47-4.68)
[2025-01-17 10:53] LABS: Vitamin D, 25-OH*** 78.5 ng/mL (30-80)
[2025-01-18 23:38] LABS: Testosterone, Bioavailable 197 ng/dL (131-682)
== END ==
LOC: REG 06:50
PROVIDERS: ATTENDING PHYSICIAN Family Medicine
DX: N62 Hypertrophy of breast (principal); E03.9 Hypothyroidism, unspecified; N20.0 Calculus of kidney; Z13.220 Encounter for screening for lipoid disorders; Z79.899 Other long term (current) drug therapy; D64.9 Anemia, unspecified
CPT/HCPCS: 36415; 80053; 80061; 82306; 82627; 82670; 83001; 83002; 84146; 84270; 84402; 84403; 84439; 84443

== ENCOUNTER → 2025-01-28 09:09 | Outpatient (REF) | payer MEDICARE, BC, SELFPAY | LOC: WDC 09:09 | PROVIDERS: ATTENDING PHYSICIAN Family Medicine | DX: N63.21 Unspecified lump in the left breast, upper outer quadrant (principal); N63.42 Unspecified lump in left breast, subareolar | CPT/HCPCS: 76642; 77062; 77066 ==